=== PATIENT | female | born 1980 | race Caucasian/White ===

== ENCOUNTER → 2016-06-01 | Outpatient (REF) | payer OTHER | LOC: M LAB REF 16:44 | PROVIDERS: ATTEND Physician Assistant | DX: J02.9 Acute pharyngitis, unspecified (principal) ==

== ENCOUNTER 2018-03-13 09:17 | Day surgery (SDC) | payer OTHER ==
[~2018-03-13] VITALS: Ht 172.7 cm; Wt 81.8 kg
[2018-03-13] MEDS: LR 1,000 ML IV ONE ×2 (06:00→09:55)
[~2018-03-13 09:17] MED LIST: CAMRTAB PO; LAMO200T2 PO; SYNT100T PO; TOPI200T7 PO; dexameTHASONE 4 MG/ML 1ML VIAL (J1100) IV ONE
[2018-03-13] MEDS ORDERED: SUCCINYLCHOLINE 100 MG/5 ML SYRINGE (J0330) As Ordered ONE (09:26)
[2018-03-13] MEDS ORDERED: PROPOFOL 200 MG/20 ML VIAL As Ordered ONE (09:26)
[2018-03-13] MEDS ORDERED: LIDOCAINE 2% INJ 100 MG/5 ML SDV (FOR ANES.) As Ordered ONE (09:26)
[2018-03-13] MEDS ORDERED: MIDAZOLAM INJ 2 MG/2 ML VIAL (J2250) As Ordered ONE (09:26)
[2018-03-13] MEDS ORDERED: fentaNYL 100 MCG/2 ML INJECTION (J3010) As Ordered ONE ×2 (09:26→10:43)
[2018-03-13] MEDS ORDERED: ROCURONIUM BROMIDE 50 MG/5 ML VIAL As Ordered ONE (09:29)
[2018-03-13] MEDS ORDERED: dexameTHASONE 4 MG/ML 1ML VIAL (J1100) As Ordered ONE (09:42)
[2018-03-13] MEDS ORDERED: ONDANSETRON 4MG/2ML VIAL (J2405) As Ordered ONE (09:42)
[2018-03-13 09:55] LABS: URINE PREG TEST NEGATIVE (NEGATIVE)
[2018-03-13] MEDS ORDERED: METHYLENE BLUE 0.5% (5MG/ML) 10 ML AMP (PROVAYBLUE)(Q9968 PER 1MG) As Ordered ONE (10:07)
[2018-03-13] MEDS ORDERED: LIDOCAINE W/EPINEPHRINE 1% 20ML VIAL As Ordered ONE (10:07)
[2018-03-13] MEDS ORDERED: OXYMETAZOLINE NASAL SPRAY (AFRIN) As Ordered ONE (10:07)
[2018-03-13] MEDS ORDERED: CETACAINE SPRAY 5GM As Ordered ONE (10:11)
[2018-03-13] MEDS ORDERED: SUGAMMADEX SODIUM 500 MG/5 ML VIAL (BRIDION) As Ordered ONE (10:43)
[2018-03-13] MEDS ORDERED: PERCOCET 5MG/325MG TAB PO PRN (11:30)
[2018-03-13] MEDS ORDERED: ONDANSETRON 4MG/2ML VIAL (J2405) IV PRN (11:30)
[2018-03-13] MEDS ORDERED: METOCLOPRAMIDE INJ 10MG/2ML VIAL (J2765) IV PRN (11:30)
[2018-03-13] MEDS ORDERED: LR 1,000 ML IV SCH ×2 (11:30)
[2018-03-13] MEDS ORDERED: fentaNYL 100 MCG/2 ML INJECTION (J3010) IV PRN (11:30)
[2018-03-13 12:15] VITALS: BP 139/77
--- NOTE | 2018-03-27 06:53 | RO ---
DATE OF PROCEDURE: 03/13/2018 PREOPERATIVE DIAGNOSIS: Dysphonia. POSTOPERATIVE DIAGNOSES: Dysphonia and vocal cord polyps. PROCEDURE: Direct suspension microlaryngoscopy with excision of the right vocal cord mass. SURGEON: Dr. Venkat Chen DIESEL ENGINE II PIPE FITTER: ANESTHESIA: General. CLINICAL PREAMBLE: This 38-year-old woman presented to the office with complaints of hoarseness. Flexible laryngoscopy revealed mucosal lesion on the vocal cords consistent with possible polyps, nodules. Management options including direct suspension microlaryngoscopy with removal of the vocal cord lesion have been discussed. Patient understood and consented to the procedure. DESCRIPTION OF PROCEDURE: Patient was identified in preoperative holding and brought to the operating room in stable condition. In supine position on the operating table, patient received general anesthesia followed by orotracheal intubation without incident. Patient was prepped and draped in the usual fashion for the procedure. Bimanual palpation of the oral cavity, oropharynx, lateral and posterior pharyngeal wall was unremarkable for discrete mass lesion. Upper dentition was protected. Dedo-Pilling laryngoscope was used to inspect the mucosa of the oral cavity, oral pharynx, supraglottis, pyriform sinuses, posterior pharyngeal wall, and base of tongue. No lesion was noted. The Dedo laryngoscope was then suspended 149 on a Liz stand. The glottis was visualized. Polypoid-like lesion was noted on the anterior one-third of the left and the right vocal cords. The mass was more prominent on the right vocal cord. As such, a decision was made to excise the mass lesion from the right vocal cord. Mucosal incision was made. Dissection was carried out in the submucosal plane to excise the lesion from the right vocal cord. The mucosa was then retrieved back over the right vocal cord vocalis muscle. Hemostasis was observed at this time. The anterior commissure mucosa remained intact. At the end of procedure, sponge and instrument counts were correct. No complication was encountered. Estimated blood loss was less than 1 mL. General anesthesia was reversed, and patient was extubated and brought to recovery room in stable condition.
== END 2018-03-13 12:55 | disposition home or self-care (01) ==
LOC: M SDC 09:17
PROVIDERS: ATTEND Otolaryngology
DX: R49.0 Dysphonia (principal); J38.1 Polyp of vocal cord and larynx; E03.9 Hypothyroidism, unspecified; F41.9 Anxiety disorder, unspecified; J00 Acute nasopharyngitis [common cold]; Z79.899 Other long term (current) drug therapy; Z72.0 Tobacco use
CPT/HCPCS: 31578; 84703; 88305; J0330; J1100; J2250; J2405; J3010; Q9968

== ENCOUNTER 2018-04-15 15:45 | Outpatient (RCR) | payer OTHER ==
[~2018-04-15 15:45] MED LIST changes: -dexameTHASONE 4 MG/ML 1ML VIAL (J1100) IV ONE
== END 2018-04-18 ==
LOC: M ST 15:45
PROVIDERS: ATTEND Otolaryngology
DX: J38.2 Nodules of vocal cords (principal); R49.0 Dysphonia

== ENCOUNTER → 2018-04-19 | Outpatient (REF) | payer OTHER | LOC: M LAB REF 12:43 | PROVIDERS: ATTEND Physician Assistant Medical | DX: J02.9 Acute pharyngitis, unspecified (principal) ==

== ENCOUNTER 2018-05-13 16:09 | Outpatient (RCR) | payer OTHER | END 2018-05-16 | LOC: M ST 16:09 | PROVIDERS: ATTEND Otolaryngology | DX: J38.2 Nodules of vocal cords (principal); R49.0 Dysphonia ==

== ENCOUNTER 2018-05-27 16:07 | Outpatient (RCR) | payer OTHER | END 2018-06-16 | LOC: M ST 16:07 | PROVIDERS: ATTEND Otolaryngology | DX: R49.0 Dysphonia (principal) ==

== ENCOUNTER → 2019-10-16 | Outpatient (CLI) | payer OTHER ==
[~2019-10-16] MED LIST changes: -LAMO200T2 PO; +LAMO200T3 PO
--- NOTE | 2019-11-09 12:56 | REPMRS ---
Patient History The patient states she had a clinical breast exam in August 2019. Family history of breast cancer at age 60 in maternal grandmother. Digital Woman Screen Mammo: October 16, 2019 - Exam #: [id number] Bilateral CC and MLO view(s) were taken. Technologist: Meghan Schneider, Technologist No prior studies available for comparison. FINDINGS: There are scattered fibroglandular densities. The Volpara volumetric breast density category is: B. There is no evidence of dominant mass, architectural distortion, or grouped microcalcification typical of malignancy. 3-D tomosynthesis shows no additional findings. Report was delayed due to a protracted network disruption experienced by this facility. Assessment: BI-RADS/ACR category 1 mammogram. Negative Mammogram. Recommendation Routine screening mammogram of both breasts in 1 year (for women over age 40). This patient's Lifetime Breast Cancer RIsk is estimated at 16.0 %. This mammogram was interpreted with the aid of an FDA-approved computer-aided dectection system. Electronically Signed By: Matthias Man MD 11/09/19 [id number]
== END ==
LOC: M WHC 10:15
PROVIDERS: ATTEND Obstetrics & Gynecology
DX: Z12.31 Encounter for screening mammogram for malignant neoplasm of breast (principal)

== ENCOUNTER → 2020-11-17 | Outpatient (CLI) | payer OTHER ==
--- NOTE | 2020-11-17 08:29 | REPMRS ---
Patient History The patient states she had a clinical breast exam in August 2020. Family history of breast cancer at age 60 in maternal grandmother. Took hormonal contraceptives for 30 years. 12 lbs unintentional weight loss. Covid vaccine 08/09/2020 left arm. 08/2020 left arm. Pt denied . Patient states no breast complaints today. Patient has signed MRS History Sheet. Digital Woman Screen Mammo: November 17, 2020 - Exam #: [id number] Bilateral CC and MLO view(s) were taken. Technologist: RT Jagdish Prior study comparison: October 16, 2019, bilateral digital woman screen mammo performed at [facility] and [facility]. FINDINGS: There are scattered fibroglandular densities. The Volpara volumetric breast density category is:B. There has been no change in the appearance of the mammogram from the prior studies. There is a mild amount of scattered fibroglandular density which is fairly symmetric. There is no interval development of dominant mass, architectural distortion, or grouped microcalcification suggestive of malignancy. 3-D tomosynthesis shows no additional findings. Assessment: BI-RADS/ACR category 1 mammogram. Negative Mammogram. Recommendation Routine screening mammogram of both breasts in 1 year (for women over age 40). This patient's [facility] Lifetime Breast Cancer Risk is estimated at 15.8 %. This mammogram was interpreted with the aid of an FDA-approved computer-aided dectection system. Electronically Signed By: Matthias Man MD 11/17/20 0828
== END ==
LOC: M WHC 07:07
PROVIDERS: ATTEND Obstetrics & Gynecology
DX: Z12.31 Encounter for screening mammogram for malignant neoplasm of breast (principal)

== ENCOUNTER 2021-07-13 10:10 | Emergency (ER) | payer OTHER ==
[~2021-07-13] VITALS: Ht 172.7 cm; Wt 83.1 kg
[2021-07-13] MEDS ORDERED: BUSP15TA47 (10:21)
[2021-07-13] MEDS ORDERED: OMEP-173 (10:21)
[2021-07-13] MEDS ORDERED: IBUP200T46 PO (10:24)
[2021-07-13 12:05] LABS: BASO % 0.3 % (0.0-1.0); HEMATOCRIT 41.6 % (36.0-47.0); HEMOGLOBIN 13.6 g/dl (12.0-15.5); LYMPH # 0.9 10^3/uL (1.5-5.0); LYMPH % 6.2 % (24.0-44.0); MEAN CORPUSCULAR HEMOGLOBIN 30.7 pg (27.0-33.0); MEAN CORPUSCULAR HGB CONC 32.7 g/dl (32.0-36.5); MEAN CORPUSCULAR VOLUME 93.9 fl (80.0-96.0); MONO # 0.4 10^3/uL (0.0-0.8); MONO % 2.4 % (2.0-8.0); NEUTROPHILS # 13.4 10^3/uL (1.5-8.5); NEUTROPHILS % 90.7 % (36.0-66.0); PLATELET COUNT, AUTOMATED 287 10^3/uL (150-450); RED BLOOD COUNT 4.43 10^6/uL (4.00-5.40); WHITE BLOOD COUNT 14.8 10^3/uL (4.0-10.0)
[2021-07-13] MEDS ORDERED: MORPHINE 4 MG/ML 1ML VIAL/SYRINGE IV ONE (12:20)
[2021-07-13] MEDS ORDERED: ONDANSETRON 4MG/2ML VIAL IV ONE (12:20)
[2021-07-13 12:31] LABS: ALBUMIN 3.9 GM/DL (3.2-5.2); BILIRUBIN,DIRECT 0.2 MG/DL (0.0-0.2); BILIRUBIN,TOTAL 0.4 MG/DL (0.2-1.0); CREATININE FOR GFR 1.27 MG/DL (0.55-1.30); GLOMERULAR FILTRATION RATE 48.9 (>58); POTASSIUM SERUM 3.9 MEQ/L (3.5-5.1); TOTAL PROTEIN 7.5 GM/DL (6.4-8.2)
[2021-07-13] MEDS ORDERED: ISOVUE-370 76% 100ML VIAL As Ordered ONE (12:40)
[2021-07-13] MEDS ORDERED: NS 1,000 ML IV ONE (12:55)
[2021-07-13] MEDS ORDERED: KETOROLAC 30 MG/ML 1ML VIAL IV ONE (13:30)
[2021-07-13] MEDS ORDERED: KETO10TAB PO (14:03)
[2021-07-13] MEDS ORDERED: CIPR-249 PO (14:03)
[2021-07-13] MEDS ORDERED: CIPROFLOXACIN 500MG TABLET PO ONE (14:05)
[2021-07-13 14:32] VITALS: BP 156/85
== END 2021-07-13 14:34 | disposition home or self-care (01) ==
LOC: M ED 10:10
DX: N10 Acute pyelonephritis (principal); N13.2 Hydronephrosis with renal and ureteral calculous obstruction; E03.9 Hypothyroidism, unspecified; F41.9 Anxiety disorder, unspecified; Z79.899 Other long term (current) drug therapy; Z79.890 Hormone replacement therapy
CPT/HCPCS: 74177; 80048; 80076; 81001; 83690; 84702; 85025; 96361; 96374; 96375; 99284; J1885; J2270; J2405; Q9967

== ENCOUNTER → 2021-11-18 | Outpatient (CLI) | payer OTHER ==
[~2021-11-18] MED LIST changes: +BUSP15TA47; +CIPR-249 PO; +IBUP200T46 PO; +KETO10TAB PO; +OMEP-173
== END ==
LOC: M WHC 13:34
PROVIDERS: ATTEND Obstetrics & Gynecology
DX: Z12.31 Encounter for screening mammogram for malignant neoplasm of breast (principal)

== ENCOUNTER 2022-05-11 23:29 | Emergency (ER) | payer OTHER ==
[~2022-05-11] VITALS: Ht 170.2 cm; Wt 82.3 kg
[2022-05-12 00:43] LABS: BLOOD UREA NITROGEN 21 MG/DL (9-23); CALCIUM LEVEL 8.8 MG/DL (8.5-10.1); CARBON DIOXIDE LEVEL 20 MMOL/L (20-31); CHLORIDE LEVEL 109 MMOL/L (98-107); CREATININE FOR GFR 1.14 MG/DL (0.55-1.30); GLOMERULAR FILTRATION RATE 55.1 (>58); GLUCOSE, FASTING 116 MG/DL (60-100); POTASSIUM SERUM 3.9 MMOL/L (3.5-5.1); SODIUM LEVEL 139 MMOL/L (136-145)
[2022-05-12 00:50] LABS: HCG, SERUM QUALITATIVE NEGATIVE (NEGATIVE)
[2022-05-12 00:58] LABS: BASO # 0.1 10^3/uL (0.0-0.2); BASO % 0.7 % (0.0-1.0); EOS # 0.2 10^3/uL (0.0-0.5); EOS % 2.3 % (0.0-3.0); HEMATOCRIT 40.8 % (36.0-47.0); HEMOGLOBIN 13.5 g/dl (12.0-15.5); LYMPH # 2.4 10^3/uL (1.5-5.0); LYMPH % 26.9 % (24.0-44.0); MEAN CORPUSCULAR HEMOGLOBIN 30.6 pg (27.0-33.0); MEAN CORPUSCULAR HGB CONC 33.1 g/dl (32.0-36.5); MEAN CORPUSCULAR VOLUME 92.5 fl (80.0-96.0); MONO # 0.5 10^3/uL (0.0-0.8); MONO % 5.1 % (2.0-8.0); NEUTROPHILS # 5.7 10^3/uL (1.5-8.5); NEUTROPHILS % 64.9 % (36.0-66.0); PLATELET COUNT, AUTOMATED 250 10^3/uL (150-450); RED BLOOD COUNT 4.41 10^6/uL (4.00-5.40); WHITE BLOOD COUNT 8.8 10^3/uL (4.0-10.0)
[2022-05-12] MEDS ORDERED: MORPHINE 4 MG/ML 1ML VIAL IV ONE (01:50)
[2022-05-12] MEDS ORDERED: ONDANSETRON 4MG 2ML VIAL IV ONE (01:50)
[2022-05-12] MEDS ORDERED: KETOROLAC 30 MG/ML 1ML VIAL IV ONE (02:35)
[2022-05-12 03:30] VITALS: BP 165/79
[2022-05-12] MEDS ORDERED: FLOM0.4C39 PO (03:50)
[2022-05-12] MEDS ORDERED: KETO10TAB PO (03:50)
[2022-05-12] MEDS ORDERED: KETOROLAC TROMETHAMINE 10 MG TAB PO ONE (04:05)
[2022-05-12] MEDS ORDERED: ONDANSETRON 4MG ORAL DISINTEGRATING TAB PO ONE (04:05)
== END 2022-05-12 04:18 | disposition home or self-care (01) ==
LOC: M ED 23:29
DX: N20.1 Calculus of ureter (principal); N13.4 Hydroureter; K21.9 Gastro-esophageal reflux disease without esophagitis; G43.909 Migraine, unspecified, not intractable, without status migrainosus; F32.A Depression, unspecified; E03.9 Hypothyroidism, unspecified; F10.10 Alcohol abuse, uncomplicated; Z87.442 Personal history of urinary calculi; Z79.1 Long term (current) use of non-steroidal anti-inflammatories (NSAID); Z79.899 Other long term (current) drug therapy
CPT/HCPCS: 74176; 80048; 81001; 84703; 85025; 96374; 96375; 99284; J1885; J2270; J2405

== ENCOUNTER → 2022-05-24 | Outpatient (CLI) | payer OTHER ==
[~2022-05-24] MED LIST changes: +FLOM0.4C39 PO
[2022-05-24 18:25] LABS: APPEARANCE, URINE CLEAR (CLEAR); BACTERIA, URINE AUTO NEGATIVE (NEGATIVE); BILIRUBIN, URINE AUTO NEGATIVE (NEGATIVE); BLOOD, URINE BLOOD NEGATIVE (NEGATIVE); COLOR, URINE YELLOW (YELLOW); GLUCOSE, URINE (UA) AUTO NEGATIVE (NEGATIVE); KETONE, URINE AUTO NEGATIVE (NEGATIVE); LEUKOCYTE ESTERASE, URINE AUTO NEGATIVE (NEGATIVE); MUCUS, URINE SMALL (NEGATIVE); NITRITE, URINE AUTO NEGATIVE (NEGATIVE); PROTEIN, URINE AUTO NEGATIVE (NEGATIVE); RBC, URINE AUTO 5 /HPF (0-3); SPECIFIC GRAVITY URINE AUTO 1.021 (1.002-1.035); SQUAMOUS EPITHELIAL CELL UR AU 1 /HPF (0-6); WBC, URINE AUTO 1 /HPF (0-3)
== END ==
LOC: M PLALAB 14:44
PROVIDERS: ATTEND Physician Assistant
DX: Z13.29 Encounter for screening for other suspected endocrine disorder (principal)

== ENCOUNTER → 2022-05-29 | Outpatient (CLI) | payer OTHER ==
[~2022-05-29] MED LIST changes: +ABIL1TAB11 PO; +CARB400T4 PO
== END ==
LOC: M LABSMTC 08:04
PROVIDERS: ATTEND Anesthesiology
DX: Z01.812 Encounter for preprocedural laboratory examination (principal); Z20.822 Contact with and (suspected) exposure to COVID-19

== ENCOUNTER 2022-06-02 08:49 | Day surgery (SDC) | payer OTHER ==
[~2022-06-02] VITALS: Ht 170.2 cm; Wt 83.9 kg
[~2022-06-02 08:49] MED LIST changes: +ceFAZolin SOD 2 GM in IV 1 EA IV ONE
[2022-06-02] MEDS ORDERED: MIDAZOLAM INJ 2MG/2ML VIAL As Ordered ONE (09:32)
[2022-06-02] MEDS ORDERED: KETOROLAC 60MG 2ML VIAL As Ordered ONE (09:32)
[2022-06-02] MEDS ORDERED: propofoL 200 MG/20 ML VIAL As Ordered ONE (09:32)
[2022-06-02] MEDS ORDERED: ONDANSETRON 4MG 2ML VIAL As Ordered ONE (09:32)
[2022-06-02] MEDS ORDERED: LIDOCAINE 2% 100MG/5ML SDV (FOR ANES.) As Ordered ONE (09:32)
[2022-06-02] MEDS ORDERED: fentaNYL 100 MCG/2 ML INJECTION As Ordered ONE (09:33)
[2022-06-02] MEDS ORDERED: ISOVUE-300 61% 100ML VIAL As Ordered ONE (10:57)
[2022-06-02] MEDS ORDERED: ONDANSETRON 4MG 2ML VIAL IV PRN (11:45)
[2022-06-02] MEDS ORDERED: LR 1,000 ML IV SCH (11:45)
[2022-06-02] MEDS ORDERED: HYDROMORPHONE HCL 0.5 MG/ 0.5 ML SYRINGE IV PRN (11:45)
[2022-06-02] MEDS ORDERED: oxyCODONE 5MG TAB PO PRN (11:45)
[2022-06-02] MEDS ORDERED: fentaNYL 100 MCG/2 ML INJECTION IV PRN (11:45)
[2022-06-02 12:32] VITALS: BP 133/70
[2022-06-06 20:08] LABS: Ca Ox Monohydrate 10 % (.); Size 6x3 mm (.)
== END 2022-06-02 13:09 | disposition home or self-care (01) ==
LOC: M SDC 08:49
PROVIDERS: ATTEND Urology
DX: N13.2 Hydronephrosis with renal and ureteral calculous obstruction (principal); E03.9 Hypothyroidism, unspecified; F41.9 Anxiety disorder, unspecified; Z87.891 Personal history of nicotine dependence; Z79.899 Other long term (current) drug therapy
CPT/HCPCS: 52356; 76000; 81025; 82365; C1769; C1894; C2617; J0690; J1100; J1885; J2250; J2405; J3010; Q9967

== ENCOUNTER → 2022-11-27 | Outpatient (CLI) | payer OTHER ==
[~2022-11-27] MED LIST changes: -ceFAZolin SOD 2 GM in IV 1 EA IV ONE
== END ==
LOC: M WHC 08:30
PROVIDERS: ATTEND Obstetrics & Gynecology
DX: Z12.31 Encounter for screening mammogram for malignant neoplasm of breast (principal)

== ENCOUNTER → 2023-02-19 | Outpatient (CLI) | payer OTHER | LOC: M WUC 13:52 | PROVIDERS: ATTEND Urology | DX: N20.0 Calculus of kidney (principal) ==

== ENCOUNTER 2023-11-23 08:35 | Day surgery (SDC) | payer OTHER ==
[~2023-11-23] VITALS: Ht 172.7 cm; Wt 85.7 kg
[~2023-11-23 08:35] MED LIST changes: +ALPR0.5T3 PO; -BUSP15TA47; +BUSP15TA47 PO; +CARB400T11 PO; -CARB400T4 PO; +L-NO1TBD6 PO; +LEVO100T5 PO; +LISI10TA22 PO; +OMEP40CA5 PO; +PHEN-239 PO
[2023-11-23] MEDS: NS 1,000 ML IV ONE (08:56)
[2023-11-23] MEDS ORDERED: propofoL 200 MG/20 ML VIAL As Ordered ONE (09:29)
[2023-11-23] MEDS ORDERED: LIDOCAINE 2% 100MG/5ML SDV (FOR ANES.) As Ordered ONE (09:29)
[2023-11-23 09:52] VITALS: TEMP 97.1
[2023-11-23 10:09] VITALS: BP 149/86; O2SAT 98
== END 2023-11-23 10:16 | disposition home or self-care (01) ==
LOC: M OPP 08:35
PROVIDERS: ATTEND Surgery
DX: Z12.11 Encounter for screening for malignant neoplasm of colon (principal); K64.0 First degree hemorrhoids; K57.30 Diverticulosis of large intestine without perforation or abscess without bleeding; E03.9 Hypothyroidism, unspecified; Z87.891 Personal history of nicotine dependence; Z79.890 Hormone replacement therapy; Z79.899 Other long term (current) drug therapy

== ENCOUNTER → 2023-11-30 | Outpatient (CLI) | payer OTHER | LOC: M WHC 08:04 | PROVIDERS: ATTEND Obstetrics & Gynecology | DX: Z12.31 Encounter for screening mammogram for malignant neoplasm of breast (principal) ==

== ENCOUNTER → 2024-04-01 | Outpatient (CLI) | payer OTHER | LOC: M PLAIMG 13:54 | PROVIDERS: ATTEND Urology | DX: N20.0 Calculus of kidney (principal) ==

== ENCOUNTER → 2024-11-04 | Outpatient (CLI) | payer OTHER ==
[~2024-11-04] MED LIST changes: -FLOM0.4C39 PO; -PHEN-239 PO; +PHEN37.511 PO; +TAMS-18 PO; +TOPI-14 PO; -TOPI200T7 PO
[2024-11-04 10:58] LABS: BASO # 0.1 10^3/uL (0.0-0.2); BASO % 0.8 % (0.0-1.0); EOS # 0.1 10^3/uL (0.0-0.5); EOS % 2.3 % (0.0-3.0); LYMPH # 1.6 10^3/uL (1.5-5.0); LYMPH % 25.1 % (24.0-44.0); MONO # 0.3 10^3/uL (0.0-0.8); MONO % 5.5 % (2.0-8.0); NEUTROPHILS # 4.1 10^3/uL (1.5-8.5); NEUTROPHILS % 66.1 % (36.0-66.0); PLATELET COUNT, AUTOMATED 261 10^3/uL (150-450)
[2024-11-04 11:05] LABS: ALT/SGPT 16 U/L (7.0-40); AST/SGOT 19 U/L (<34); CALCIUM LEVEL 9.1 MG/DL (8.5-10.1); CARBON DIOXIDE LEVEL 25 MMOL/L (20-31); CHLORIDE LEVEL 108 MMOL/L (98-107); CREATININE FOR GFR 0.89 MG/DL (0.55-1.30); GLOMERULAR FILTRATION RATE 80.9 (>58); POTASSIUM SERUM 5.1 MMOL/L (3.5-5.1); SODIUM LEVEL 139 MMOL/L (136-145)
[2024-11-04 11:06] LABS: FREE T4 1.06 NG/DL (0.89-1.76)
[2024-11-04 11:07] LABS: PROGESTERONE < 0.21 NG/ML
[2024-11-04 11:26] LABS: ESTIMATED AVERAGE GLUCOSE 100.0 MG/DL (60-110)
[2024-11-06 12:37] LABS: INSULIN TOTAL2 14.1 uIU/mL (<=18.4)
== END ==
LOC: M PLALAB 08:51
PROVIDERS: ATTEND Physician Assistant
DX: M25.552 Pain in left hip (principal); E03.9 Hypothyroidism, unspecified; N95.1 Menopausal and female climacteric states; Z13.29 Encounter for screening for other suspected endocrine disorder

== ENCOUNTER → 2024-12-15 | Outpatient (CLI) | payer OTHER | LOC: M WHC 09:04 | PROVIDERS: ATTEND Obstetrics & Gynecology | DX: Z12.31 Encounter for screening mammogram for malignant neoplasm of breast (principal); R92.313 Mammographic fatty tissue density, bilateral breasts ==